=== PATIENT | male | born 1960 | race Caucasian/White ===

== ENCOUNTER 2019-09-06 11:46 | Emergency (ER) | payer OTHER ==
[~2019-09-06] VITALS: Ht 162.6 cm; Wt 77.1 kg
[2019-09-06 11:58] VITALS: BP 140/89
--- NOTE | 2019-09-06 12:07 | NUR ---
59/M BIBA BLS FOR ETOH INTOXICATION. PT STATES HE DRANK 4 BEERS AND TOOK 2 ATIVAN PILLS (TOTAL DOSE 2 MG). +DELAYED AND SLURRED SPEECH. ALERT TO PERSON, PLACE, AND TIME. UNABLE TO STATE HOW EMS BROUGHT HIM TO THE HOSPITAL. PER EMS, BYSTANDER CALLED 911 DUE TO PT BEING "PASSED OUT" ON SIDEWALK BY [facility]. PT DENIES HEAD TRAUMA. PT HAS GAUZE BANDAGE TO LLQ AND STATES HE HAD A HERNIA REPAIR DONE "A WHILE AGO". PT ALSO HAS GAUZE WRAPPED AROUND R UA AND STATES HE IT IS AN ABSCESS D/T HEROIN INJECTION HOWEVER STATES HAS BEEN "CLEAN FOR 3 YEARS". PT STATES MILD NAUSEA AT THIS TIME, NO VOMITING. HX: DENIES RX: DENIES
--- NOTE | 2019-09-06 12:23 | NUR ---
DR HARTMAN EVALUATING PT AT BEDSIDE
--- NOTE | 2019-09-06 14:22 | NUR ---
PT RESTING IN BED, AROUSABLE BY VOICE, NAD, VSS.
--- NOTE | 2019-09-06 15:55 | NUR ---
PT RESTING IN BED, NAD, VSS ON BEDSIDE MONITOR.
--- NOTE | 2019-09-06 16:08 | NUR ---
PT OUT OF BED AND ABLE TO AMBULATE WITHOUT ASSIST
--- NOTE | 2019-09-06 16:16 | NUR ---
Patient discharged with v/s stable. Written and verbal after care instructions given and explained. Patient alert, oriented and verbalized understanding of instructions. Ambulatory with steady gait. All questions addressed prior to discharge. ID band removed. Patient advised to follow up with PMD. Rx of CLINDAMYCIN given. Patient educated on indication of medication including possible reaction and side effects. Opportunity to ask questions provided and answered. PT AOX4, AMBULATORY STEADY GAIT. BUS PASS PROVIDED TO PT.
[2019-09-06 16:18] VITALS: BP 108/62
== END 2019-09-06 16:16 | disposition home or self-care (01) ==
LOC: MED 11:46
DX: F10.129 Alcohol abuse with intoxication, unspecified (principal); Z98.890 Other specified postprocedural states
CPT/HCPCS: 99283

== ENCOUNTER 2019-09-07 01:05 | Emergency (ER) | payer OTHER ==
[~2019-09-07] VITALS: Ht 177.8 cm; Wt 77.1 kg
[2019-09-07 01:10] VITALS: BP 109/52
--- NOTE | 2019-09-07 01:15 | NUR ---
BG 128
--- NOTE | 2019-09-07 01:16 | NUR ---
PT AMBULATED TO ER BED 5
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
--- NOTE | 2019-09-07 01:26 | NUR ---
DR. AVALOS BEDSIDE EVALUATING PT
[2019-09-07] MEDS ORDERED: BACITRACIN OINT 500 UNITS/GM PKT TP ONE (01:28)
--- NOTE | 2019-09-07 01:30 | NUR ---
EMT CLEANING PT'S WOUNDS AND APPLYING TOPICAL ANTIBIOTIC AND BANDAGING.
--- NOTE | 2019-09-07 01:37 | NUR ---
BACITRACIN PLACED ON PTS FACE AND ARM WOUNDS. NON ADHERENT AND ROLL GAUZE PLACED ON PTS ARM. PTS PMSC WNL.
--- NOTE | 2019-09-07 01:40 | NUR ---
PT TO CT
--- NOTE | 2019-09-07 01:54 | NUR ---
PT RETURNED FROM CT
[2019-09-07 02:40] VITALS: BP 109/52
== END 2019-09-07 02:40 | disposition home or self-care (01) ==
LOC: MED 01:05
DX: S00.81XA Abrasion of other part of head, initial encounter (principal); S00.31XA Abrasion of nose, initial encounter; E11.9 Type 2 diabetes mellitus without complications; W19.XXXA Unspecified fall, initial encounter; Y93.89 Activity, other specified; Y92.488 Other paved roadways as the place of occurrence of the external cause; Y99.8 Other external cause status
CPT/HCPCS: 70450; 70486; 99285